=== PATIENT | female | born 1960 | race Caucasian/White ===

== ENCOUNTER → 2017-12-12 10:44 | Outpatient (CLI) | payer OTHER, SELFPAY ==
[2017-12-12 12:03] LABS: Absolute Neutrophil Count 2.4 X10^3/uL (2.0-7.7); Basophil# 0.03 X10^3/uL; Basophil% 0.8 % (0-1); Eosinophils% 2.6 % (0-5); Hematocrit 38.2 % (37-47); Hemoglobin 12.2 g/dl (12.0-15.0); Lymphocyte % 28.2 % (19-41); Mean Corp Hgb Conc 31.9 g/gl (32-36); Mean Corpuscular Hgb 29.7 pg (27.0-32.0); Mean Corpuscular Volume 92.9 fL (81-99); Mean Platelet Vol. 9.2 fl (6.2-12.0); Monocyte# 0.32 X10^3/uL; Monocyte% 8.2 % (0-10); Neutrophil # 2.35 X10^3/uL (2.7-7.7); Neutrophil % 60.2 % (47-70); Platelet Count 165 K/mm3 (150-450); RBC Distribution Width CV 13.5 % (11.6-14.6); RBC Distribution Width SD 45.7 fl (35.1-43.9); Red Blood Count 4.11 M/mm3 (4.2-5.4); White Blood Count 3.9 K/mm3 (4.4-11.0)
[2017-12-12 12:05] LABS: POSITIVE COUNT NO; POSITIVE DIFFERENTIAL NO; POSITIVE MORPHOLOGY NO
[2017-12-12 12:29] LABS: ALB/GLOB Ratio 0.8 RATIO (0.9-2.4); AST(SGOT) 16 U/L (15-37); Alanine Aminotransfer ALT/SGPT 26 U/L (13-56); Albumin, Serum 3.2 g/dL (3.2-5.0); Alkaline Phosphatase 106 U/L (45-117); Anion Gap 8 (5-15); BUN 16 mg/dL (7-18); BUN/Creat Ratio 15.2 RATIO (10-20); Calcium,Total 8.8 mg/dL (8.5-10.1); Chloride 104 mmol/L (98-107); Creatinine, Serum 1.05 mg/dL (0.55-1.02); EST Glomerular Filtration Rate 57 mL/min (>60); Est Glom Filt Rate - Afr Amer 69 mL/min (>60); Globulin 4.1 g/dL (2.2-4.2); Glucose 93 mg/dL (74-106); Potassium 4.2 mmol/L (3.5-5.1); Protein, Total 7.3 g/dL (6.4-8.2); Sodium Level 140 mmol/L (136-145)
[2017-12-13 14:06] LABS: Absolute CD4 Helper 352 /uL (359-1519); Basophils (Absolute) 0 x10E3/uL (0.0-0.2); Eosinophils 3 % (Not Estab.); Eosinophils (Absolute) 0.1 x10E3/uL (0.0-0.4); Hemoglobin 12.3 g/dL (11.1-15.9); Immature Granulocytes 0 % (Not Estab.); Lymphs 29 % (Not Estab.); Lymphs (Absolute) 1.3 x10E3/uL (0.7-3.1); MCH 29.9 pg (26.6-33.0); MCHC 33.2 g/dL (31.5-35.7); MCV 90 fL (79-97); Monocytes 8 % (Not Estab.); Monocytes (Absolute) 0.3 x10E3/uL (0.1-0.9); Neutrophils 59 % (Not Estab.); Neutrophils (Absolute) 2.6 x10E3/uL (1.4-7.0); Percent % CD4 Pos. Lymph. 27.1 % (30.8-58.5); Platelets 183 x10E3/uL (150-379); RBC Count 4.11 x10E6/uL (3.77-5.28); RDW 14.2 % (12.3-15.4); WBC Count 4.4 x10E3/uL (3.4-10.8)
[2017-12-13 14:38] LABS: Immature Granulocytes Absolute 0 x10E3/uL (0.0-0.1)
[2017-12-14 13:54] LABS: HIV-1 RNA by PCR, Quant. 50 copies/mL (.); LOG10 HIV-1 RNA 1.699 (.)
== END ==
DX: B20 Human immunodeficiency virus [HIV] disease (principal)
CPT/HCPCS: 36415; 80053; 85025; 86361; 87536

== ENCOUNTER → 2018-01-19 12:02 | Outpatient (CLI) | payer OTHER, SELFPAY ==
[2018-01-21 12:07] LABS: HIV-1 RNA by PCR, Quant. < 20 copies/mL (.)
== END ==
DX: B20 Human immunodeficiency virus [HIV] disease (principal); E78.1 Pure hyperglyceridemia; E55.9 Vitamin D deficiency, unspecified
CPT/HCPCS: 36415; 87536

== ENCOUNTER → 2018-07-11 12:39 | Outpatient (CLI) | payer OTHER, SELFPAY ==
[2018-07-11 13:49] LABS: Absolute Lymphocyte Count 1.51 X10^3/ul (0.83-4.51); Basophil# 0.03 X10^3/uL; Basophil% 0.6 % (0-1); Eosinophil# 0.05 X10^3/uL; Hematocrit 40.1 % (37-47); Hemoglobin 13.1 g/dl (12.0-15.0); Lymphocyte # 1.51 X10^3/ul (4.0); Lymphocyte % 30.3 % (19-41); Mean Corp Hgb Conc 32.7 g/gl (32-36); Mean Corpuscular Hgb 28.4 pg (27.0-32.0); Mean Corpuscular Volume 86.8 fL (81-99); Mean Platelet Vol. 9.9 fl (6.2-12.0); Monocyte# 0.37 X10^3/uL; Monocyte% 7.4 % (0-10); Neutrophil # 3.02 X10^3/uL (2.7-7.7); Neutrophil % 60.7 % (47-70); Platelet Count 208 K/mm3 (150-450); RBC Distribution Width CV 14.4 % (11.6-14.6); RBC Distribution Width SD 44.5 fl (35.1-43.9); Red Blood Count 4.62 M/mm3 (4.2-5.4)
[2018-07-11 13:51] LABS: POSITIVE COUNT NO; POSITIVE DIFFERENTIAL NO; POSITIVE MORPHOLOGY NO
[2018-07-11 14:16] LABS: ALB/GLOB Ratio 0.9 RATIO (0.9-2.4); AST(SGOT) 20 U/L (15-37); Alanine Aminotransfer ALT/SGPT 34 U/L (13-56); Albumin, Serum 3.6 g/dL (3.2-5.0); Alkaline Phosphatase 95 U/L (45-117); Anion Gap 8 (5-15); BUN 21 mg/dL (7-18); BUN/Creat Ratio 18.4 RATIO (10-20); Calcium,Total 9.2 mg/dL (8.5-10.1); Chloride 107 mmol/L (98-107); Creatinine, Serum 1.14 mg/dL (0.55-1.02); EST Glomerular Filtration Rate 52 mL/min (>60); Est Glom Filt Rate - Afr Amer 63 mL/min (>60); Globulin 3.8 g/dL (2.2-4.2); Glucose 102 mg/dL (74-106); Potassium 4.4 mmol/L (3.5-5.1); Protein, Total 7.4 g/dL (6.4-8.2); Sodium Level 143 mmol/L (136-145)
[2018-07-12 14:07] LABS: Absolute CD4 Helper 418 /uL (359-1519); Basophils (Absolute) 0 x10E3/uL (0.0-0.2); Eosinophils 1 % (Not Estab.); Eosinophils (Absolute) 0 x10E3/uL (0.0-0.4); Hematocrit 41.6 % (34.0-46.6); Hemoglobin 13.2 g/dL (11.1-15.9); Immature Granulocytes 0 % (Not Estab.); Lymphs 30 % (Not Estab.); Lymphs (Absolute) 1.7 x10E3/uL (0.7-3.1); MCHC 31.7 g/dL (31.5-35.7); MCV 88 fL (79-97); Monocytes 8 % (Not Estab.); Monocytes (Absolute) 0.5 x10E3/uL (0.1-0.9); Neutrophils 60 % (Not Estab.); Neutrophils (Absolute) 3.5 x10E3/uL (1.4-7.0); Percent % CD4 Pos. Lymph. 24.6 % (30.8-58.5); RBC Count 4.71 x10E6/uL (3.77-5.28); WBC Count 5.7 x10E3/uL (3.4-10.8)
[2018-07-14 11:41] LABS: HIV-1 RNA by PCR, Quant. < 20 copies/mL (.)
[2018-07-14 12:07] LABS: Immature Granulocytes Absolute 0 x10E3/uL (0.0-0.1); Platelets 233 x10E3/uL (150-379)
== END ==
LOC: MTLAB 12:48
DX: B20 Human immunodeficiency virus [HIV] disease (principal)
CPT/HCPCS: 36415; 80053; 85025; 86361; 87536

== ENCOUNTER → 2019-04-24 09:51 | Outpatient (CLI) | payer OTHER, SELFPAY ==
[2019-04-24 12:33] LABS: Absolute Lymphocyte Count 1.33 X10^3/uL (0.83-4.51); Absolute Neutrophil Count 3.2 X10^3/uL (2.0-7.7); Basophil# 0.06 X10^3/uL; Basophil% 1.2 % (0-1); Eosinophil# 0.08 X10^3/uL; Eosinophils% 1.6 % (0-5); Hematocrit 42.1 % (37-47); Hemoglobin 13.3 g/dL (12.0-15.0); Lymphocyte # 1.33 X10^3/ul (4.0); Lymphocyte % 26.2 % (19-41); Mean Corp Hgb Conc 31.6 g/dL (32-36); Mean Corpuscular Hgb 27.8 pg (27.0-32.0); Mean Corpuscular Volume 88.1 fL (81-99); Mean Platelet Vol. 9.7 fl (6.2-12.0); Monocyte% 7.9 % (0-10); NRBC Flagged by Analyzer 0 % (0-5); Neutrophil # 3.19 X10^3/uL (2.7-7.7); Neutrophil % 62.9 % (47-70); Platelet Count 234 K/mm3 (150-450); RBC Distribution Width CV 14.4 % (11.6-14.6); RBC Distribution Width SD 46.3 fl (35.1-43.9); Red Blood Count 4.78 M/mm3 (4.2-5.4); White Blood Count 5.1 K/mm3 (4.4-11.0)
[2019-04-24 13:02] LABS: Vitamin B12 678 pg/mL (211-911); Vitamin D,25 Hydroxy 33.5 ng/mL (29.95-100.01)
[2019-04-24 13:10] LABS: ALB/GLOB Ratio 0.8 RATIO (0.9-2.4); AST(SGOT) 21 U/L (15-37); Alanine Aminotransfer ALT/SGPT 36 U/L (13-56); Albumin, Serum 3.6 g/dL (3.2-5.0); Alkaline Phosphatase 112 U/L (45-117); Anion Gap 6 (5-15); BUN 20 mg/dL (7-18); BUN/Creat Ratio 18.3 RATIO (10-20); Calcium,Total 9.2 mg/dL (8.5-10.1); Chloride 103 mmol/L (98-107); Cholesterol 255 mg/dL (200); Creatinine, Serum 1.09 mg/dL (0.55-1.02); EST Glomerular Filtration Rate 55 mL/min (>60); Est Glom Filt Rate - Afr Amer 66 mL/min (>60); Ferritin 16 ng/mL (8-252); Globulin 4.6 g/dL (2.2-4.2); Glucose 107 mg/dL (74-106); High Density Lipoprotein 48 mg/dL; Iron 43 ug/dL (50-170); Iron Binding Capacity,Total 420 ug/dL (250-450); Magnesium 2.1 mg/dL (1.6-2.6); Potassium 4.4 mmol/L (3.5-5.1); Protein, Total 8.2 g/dL (6.4-8.2); Sodium Level 136 mmol/L (136-145); T4 Free Direct 1.22 ng/dL (0.76-1.46); Thyroid Stim Hormone (TSH) 2.24 uIU/mL (0.358-3.74); Triglycerides 207 mg/dL; Very Low Density Lipoprotein 41 mg/dL (5-40)
[2019-04-26 15:46] LABS: Zinc, Plasma or Serum 65 ug/dL (56-134)
== END ==
LOC: MFPLAB 09:52
PROVIDERS: PCP Family Medicine; Visit Provider Family Medicine
DX: E03.9 Hypothyroidism, unspecified (principal); E55.9 Vitamin D deficiency, unspecified; E66.01 Morbid (severe) obesity due to excess calories; R73.09 Other abnormal glucose; Z98.84 Bariatric surgery status
CPT/HCPCS: 36415; 80053; 80061; 82306; 82607; 82728; 83036; 83540; 83550; 83735; 84439; 84443; 84630; 85025

== ENCOUNTER → 2019-05-24 08:51 | Outpatient (CLI) | payer OTHER, SELFPAY ==
[2019-05-24 10:08] LABS: Anion Gap 6 (5-15); BUN 18 mg/dL (7-18); BUN/Creat Ratio 17.6 RATIO (10-20); Calcium,Total 8.4 mg/dL (8.5-10.1); Chloride 109 mmol/L (98-107); Creatinine, Serum 1.02 mg/dL (0.55-1.02); EST Glomerular Filtration Rate 59 mL/min (>60); Est Glom Filt Rate - Afr Amer 71 mL/min (>60); Glucose 103 mg/dL (74-106); Potassium 3.8 mmol/L (3.5-5.1); Sodium Level 143 mmol/L (136-145)
== END ==
PROVIDERS: PCP Family Medicine; Referring Provider Family Medicine; Visit Provider Family Medicine
DX: R94.4 Abnormal results of kidney function studies (principal)
CPT/HCPCS: 36415; 80048

== ENCOUNTER → 2019-11-21 13:23 | Outpatient (CLI) | payer OTHER, SELFPAY ==
--- NOTE | 2019-11-21 13:32 | MRI_ITS ---
STUDY: MRI RIGHT FOREFOOT WITHOUT CONTRAST REASON FOR EXAM: Female, 59 years old. rt foot capsulitis, metatarsalgia -- pain across MTPJ s x 1 year, bunion repair 2015 TECHNIQUE: Standardized fat and water weighted pulse sequences were obtained in all 3 orthogonal planes. COMPARISON: None. FINDINGS: Healed osteotomy defect head neck junction of the first metatarsal bone in addition to a cortical plate-screw construct/surgical screw fixation in the first proximal phalanx and at the osteotomy site. Mild degenerative narrowing of the first MTP joint space. No bone marrow edema or occult fracture. Normal lateral sesamoid. Mild cortical irregularity and degenerative signal is also present in the medial sesamoid. Normal interphalangeal joint of the hallux. Normal proximal and distal phalanges of the great toe. Normal medial and lateral heads of the flexor hallucis brevis tendons. Normal flexor and extensor hallucis longus tendons. Normal second through fifth metatarsophalangeal (MTP) joints. Normal interphalangeal joints of the second through fifth toes. Normal proximal, middle and distal phalanges of the second through fifth toes. Normal first through fourth intermetatarsal spaces. Normal flexor and extensor tendons of the second through fifth toes. Normal visualized metatarsi. Normal intrinsic muscles of the forefoot. There is no demonstrated soft tissue abnormality. MRI/Lower Ext/No Jt/w/o IMPRESSION: 1. Healed osteotomy defect head neck junction of the first metatarsal bone in addition to a cortical plate-screw construct/surgical screw fixation in the first proximal phalanx and at the osteotomy site. Mild degenerative narrowing of the first MTP joint space. 2. No bone marrow edema or occult fracture. 3. Normal lateral sesamoid. Mild cortical irregularity and degenerative signal is also present in the medial sesamoid. Electronically Signed: Oniel Torres MD at 20:56 EDT , Service support ,
== END ==
PROVIDERS: PCP Family Medicine; Referring Provider Podiatrist; Visit Provider Podiatrist
DX: M77.41 Metatarsalgia, right foot (principal)
CPT/HCPCS: 73718

== ENCOUNTER → 2020-02-22 09:40 | Outpatient (CLI) | payer OTHER, SELFPAY ==
[2020-02-22 12:13] LABS: Absolute Neutrophil Count 2.5 X10^3/uL (2.0-7.7); Basophil# 0.04 X10^3/uL; Eosinophil# 0.07 X10^3/uL; Eosinophils% 1.7 % (0-5); Hematocrit 42.5 % (37-47); Hemoglobin 13.4 g/dL (12.0-15.0); Lymphocyte % 28.8 % (19-41); Mean Corp Hgb Conc 31.5 g/dL (32-36); Mean Corpuscular Hgb 30.3 pg (27.0-32.0); Mean Corpuscular Volume 96.2 fL (81-99); Mean Platelet Vol. 9.5 fl (6.2-12.0); Monocyte# 0.33 X10^3/uL; Monocyte% 7.9 % (0-10); NRBC Flagged by Analyzer 0 % (0-5); Neutrophil # 2.51 X10^3/uL (2.7-7.7); Neutrophil % 60.4 % (47-70); Platelet Count 197 K/mm3 (150-450); RBC Distribution Width CV 13.1 % (11.6-14.6); RBC Distribution Width SD 46.8 fl (35.1-43.9); Red Blood Count 4.42 M/mm3 (4.2-5.4); White Blood Count 4.2 K/mm3 (4.4-11.0)
[2020-02-22 12:38] LABS: Vitamin D,25 Hydroxy 31.7 ng/mL
[2020-02-22 12:56] LABS: ALB/GLOB Ratio 0.8 RATIO (0.9-2.4); AST(SGOT) 24 U/L (15-37); Alanine Aminotransfer ALT/SGPT 49 U/L (13-56); Albumin, Serum 3.2 g/dL (3.2-5.0); Alkaline Phosphatase 119 U/L (45-117); Anion Gap 3 (5-15); BUN 16 mg/dL (7-18); BUN/Creat Ratio 16.9 RATIO (10-20); Calcium,Total 8.5 mg/dL (8.5-10.1); Chloride 106 mmol/L (98-107); Cholesterol 256 mg/dL (200); Creatinine, Serum 0.95 mg/dL (0.55-1.02); EST Glomerular Filtration Rate 64 mL/min (>60); Est Glom Filt Rate - Afr Amer 77 mL/min (>60); Glucose 97 mg/dL (74-106); High Density Lipoprotein 52 mg/dL; Potassium 4.1 mmol/L (3.5-5.1); Protein, Total 7.2 g/dL (6.4-8.2); Sodium Level 140 mmol/L (136-145); Thyroid Stim Hormone (TSH) 2.09 uIU/mL (0.358-3.74); Triglycerides 180 mg/dL; Very Low Density Lipoprotein 36 mg/dL (5-40)
[2020-02-25 12:07] LABS: Absolute CD3 930 /uL (622-2402); Basophils (Absolute) 0.1 x10E3/uL (0.0-0.2); CD4/CD8 Ratio 0.76 (0.92-3.72); Eosinophils 2 % (Not Estab.); Eosinophils (Absolute) 0.1 x10E3/uL (0.0-0.4); Hematocrit 40.1 % (34.0-46.6); Hemoglobin 13.5 g/dL (11.1-15.9); Lymphs 30 % (Not Estab.); Lymphs (Absolute) 1.3 x10E3/uL (0.7-3.1); MCH 31.4 pg (26.6-33.0); MCHC 33.7 g/dL (31.5-35.7); MCV 93 fL (79-97); Monocytes 8 % (Not Estab.); Monocytes (Absolute) 0.3 x10E3/uL (0.1-0.9); Neutrophils 59 % (Not Estab.); Neutrophils (Absolute) 2.4 x10E3/uL (1.4-7.0); Percent % CD3 Pos. Lymph. 71.5 % (57.5-86.2); Platelets 187 x10E3/uL (150-450); WBC Count 4.1 x10E3/uL (3.4-10.8)
[2020-02-25 21:01] LABS: HIV-1 RNA by PCR, Quant. < 20 copies/mL (.)
[2020-02-25 21:48] LABS: Absolute CD4 Helper 413; Percent % CD4 Pos. Lymph. 31.8
== END ==
LOC: MTLAB 09:46
PROVIDERS: PCP Family Medicine
DX: B20 Human immunodeficiency virus [HIV] disease (principal); E55.9 Vitamin D deficiency, unspecified; E03.9 Hypothyroidism, unspecified; E78.2 Mixed hyperlipidemia
CPT/HCPCS: 36415; 80053; 80061; 82306; 84443; 85025; 86359; 87536

== ENCOUNTER 2024-01-11 11:30 | Outpatient (RCR) | payer BC, SELFPAY ==
--- NOTE | 2024-01-04 11:53 | HP.PTEVAL ---
Patient's Visit Information Visit Information Visit Information: FLORINDA BROWN is a 63 year old F referred to Physical Therapy by Dr. James Means MD with a diagnosis of Spondylolisthesis lumbar. Date of Evaluation: 01/04/24 Physical Therapist: Kayode Baez, DPT, OCS, CSCS Visit Plan Frequency: 2x /Week Duration: 4-6 Weeks Plan: 2x/week for 4-6 for... IE:HEp PPTx10, SKC,x10, trunk rotation x 10, neck rotationa nd retraction and posture with NS, HO given treat with..rollout and stretch to HEP for quad and psoas stretch, LB AROM, NS ccore strengvth mat to stand to HEP, gneral strength posture, core, LE to HEP, all with pics. MH and STM as needed. Consider pool if progress lacks Subjective Subjective: Chronic back pain and hip pain with degeration in spine and possibly spinal stenosis. Has hurt for years but is worsening. Has to sleep with head up and foot up. Slowly worsening. B hip pain and into LB. Has neuropathy in B LE but not sure etiology(- EMG). Worse at work as nurse. Better sitting and relaxing. Walking is limited to less than a quarter mile and legs aand back hurt. No noticeable weakness. Sleep is OK but stiff and sore and wakes up painful often worse without legs and head up. 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 basic ADLs all I, careful with cleaning and takes it slow, has no steps. Regular exercises none. Hobbies: sew and crafting and can do these. Pain LBP: Pain Intensity (Out of 10): 1 Pain Intensity Range: 7 Comment: worse with turning patient over, lingers a little bit, better sitting. Objective Objective: Walks with obvious kyphosis in thoracic spine but I and safe with good step length. Trasnfers chair requiring UE I. Good balance. LB AROM ext max limited and painful, L SB painful, R SB is OK, flexion is limited in lumbar but hyper kyphosis. - slump, - SLR, + instability testing UE resistance and hip flexion testing. Hip AROM ext to 0 only, abd 20, flexion 95 B. knee and ankle aROM WFL, tightness obvious in HS at -30 90/90 test and in psoas connecting into quad at 95 hanging off edge of table. reflexes 0/3 patella adna chilles B. Sensation LE WNL to gross light touch. Pelvic movement is fair but psoitioning is anteriorly rotated. Balance/Special Test Scores Oswestry Low Back Score: 20 Goals Goal 1:: I appropriate HEP for psoas stretch, core NS strength adn general strengvth to HEP to limit future pain Goal Time Frame: 4-6 Weeks Goal 2:: Move patients at work without pain Goal Time Frame: 4-6 Weeks Goal 3:: Walks 200 feet with NS adn no pain Goal Time Frame: 4-6 Weeks Goal 4:: Pt feel pain is 50% improved and 2/10 in LB at worst. Goal Time Frame: 4-6 Weeks Goal 5:: oswestry score 5 or less Goal Time Frame: 4-6 Weeks Rehabilitation Potential Physical Therapy Diagnosis: back pain , inflexibility adn weakness limiting function comfort Rehabilitation Potential: Good Anticipated Interventions Patient/Client Instruction: Educate patient on: Condition and Plan of Care For the Purpose of:: To decrease pain, To increase ROM, To improve nutrient delivery to tissue, To improve muscle performance and motor function and To increase tolerance to activity/condition/position Therapeutic Exercise to Include: Strength training, Flexibilty training, Passive ROM, Active ROM and Dynamic Lumbar Stabilization For the Purpose of:: To decrease pain, To increase ROM, To improve nutrient delivery to tissue, To increase oxygenation perfusion, To improve muscle performance and motor function and To increase tolerance to activity/condition/position Manual Therapy Techniques to Include: Mobilization and Soft tissue mobilization For the Purpose of:: To decrease pain, To increase ROM and To improve nutrient delivery to tissue Thermo therapy (hot pack): Yes For the Purpose of:: To decrease pain Text: Thank you for the opportunity to evaluate your patient. For Medicare and Medicare HMO plans, please review the plan of care and approve it. It will need to be FAXED BACK to us at [phone] for Medicare purposes. For Medicare only, by signing this I certify the plan of care. Please let me know if there are questions or concerns regarding this plan of care. Physician Signature: Date:
--- NOTE | 2024-01-23 09:38 | HP.PT.NRP ---
Patient Information Patient Information: FLORINDA BROWN was seen in my office for initial evaluation on 01/04/24. The following Plan of Care was established for this patient: POC Established Initial Frequency: 2x /Week Initial Duration: 4-6 Weeks Anticipated Interventions Patient/Client Instruction: Educate patient on: Condition and Plan of Care For the Purpose of:: To decrease pain, To increase ROM, To improve nutrient delivery to tissue, To improve muscle performance and motor function and To increase tolerance to activity/condition/position Therapeutic Exercise to Include: Strength training, Flexibilty training, Passive ROM, Active ROM and Dynamic Lumbar Stabilization For the Purpose of:: To decrease pain, To increase ROM, To improve nutrient delivery to tissue, To increase oxygenation perfusion, To improve muscle performance and motor function and To increase tolerance to activity/condition/position Manual Therapy Techniques to Include: Mobilization and Soft tissue mobilization For the Purpose of:: To decrease pain, To increase ROM and To improve nutrient delivery to tissue Thermo therapy (hot pack): Yes For the Purpose of:: To decrease pain Last Seen Last Seen: This patient was last seen in our office 01/11/24. Pertinent comments regarding their Physical therapy will appear below: Pt seen 3 visits of POC but was suggesting she did not have time for PT. She eventually called and cancelled all visits without giving a reason. I will discontinue at her request. At this point I will be discontinuing this patient from physical therapy. I would be happy to see this patient again in the future if found appropriate by the physician. Thank you! Kayode Baez, DPT, OCS, CSCS Balance/Gait/Functional tests Balance/Special Test Scores Oswestry Low Back Score: 20
== END 2024-01-11 19:00 | disposition home or self-care (01) ==
LOC: PT 11:30
PROVIDERS: PCP Family Medicine; Referring Provider Orthopaedic Surgery Orthopaedic Surgery of the Spine; Visit Provider Orthopaedic Surgery Orthopaedic Surgery of the Spine
DX: M43.16 Spondylolisthesis, lumbar region (principal)
CPT/HCPCS: 97110; 97161

== ENCOUNTER → 2024-02-08 | Outpatient (CLI) | payer BC, SELFPAY ==
--- NOTE | 2024-02-08 13:27 | MRI_ITS ---
STUDY: MRI LUMBAR SPINE WITHOUT CONTRAST REASON FOR EXAM: Female, 63 years old. back pain into bilateral legs TECHNIQUE: Standardized fat and water weighted pulse sequences were obtained in the sagittal and axial planes. COMPARISON: None FINDINGS: T12-L1: Disc desiccation and loss of disc height but no disc protrusion, spinal stenosis, neural foraminal stenosis. Normal lumbar lordosis. There is no substantial scoliosis. Normal conus medullaris that terminates at the L1/L2. Prominent hemangioma in the right side of the L5 vertebral body. L1-2: Mild bilobed disc protrusion results in mild spinal stenosis and mild bilateral neural foraminal stenosis. L2-3: Mild bilateral facet hypertrophy and moderate ligament flavum hypertrophy. Mild bilobed disc protrusion produces mild spinal stenosis and mild bilateral neural foraminal stenosis. L3-4: Mild bilateral facet hypertrophy moderately inflamed hypertrophy. Mild bilobed disc protrusion produces mild spinal stenosis and mild bilateral neural foraminal stenosis. L4-5: Moderate facet hypertrophy and ligament flavum hypertrophy. Disc desiccation and loss of disc height with a mild bilobed disc protrusion produces mild spinal stenosis and mild bilateral neural foraminal stenosis. L5-S1: Moderate bilateral facet hypertrophy and ligament flavum hypertrophy. No disc protrusion, spinal stenosis, or neural foraminal stenosis. Normal visualized sacral ala. Normal visualized paraspinous soft tissue structures. MRI/Spine Lumbar (Routine) IMPRESSION: Multilevel degenerative changes, as described above. Electronically Signed: Nguyễn Cardenas MD at 10:53 EST ,
== END | disposition home or self-care (01) ==
LOC: MRI 13:22
PROVIDERS: PCP Family Medicine; Referring Provider Orthopaedic Surgery Orthopaedic Surgery of the Spine; Visit Provider Orthopaedic Surgery Orthopaedic Surgery of the Spine
DX: M43.16 Spondylolisthesis, lumbar region (principal)
CPT/HCPCS: 72148

== ENCOUNTER → 2024-06-12 | Outpatient (CLI) | payer BC, SELFPAY ==
[2024-06-12 12:07] LABS: Absolute Lymphocyte Count 1.33 X10^3/uL (0.83-4.51); Absolute Neutrophil Count 2.9 X10^3/uL (2.0-7.7); Basophil# 0.07 X10^3/uL; Basophil% 1.5 % (0-1); Eosinophil# 0.07 X10^3/uL; Eosinophils% 1.5 % (0-5); Hematocrit 41.8 % (37-47); Hemoglobin 14.3 g/dL (12.0-15.0); Lymphocyte # 1.33 X10^3/ul (0.83-4.51); Lymphocyte % 28.2 % (19-41); Mean Corp Hgb Conc 34.2 g/dL (32-36); Mean Corpuscular Volume 93.5 fL (81-99); Mean Platelet Vol. 9.6 fl (6.2-12.0); Monocyte# 0.33 X10^3/uL; NRBC Flagged by Analyzer 0 % (0-5); Neutrophil # 2.91 X10^3/uL (2.7-7.7); Neutrophil % 61.6 % (47-70); Platelet Count 196 K/mm3 (150-450); RBC Distribution Width CV 12.8 % (11.6-14.6); RBC Distribution Width SD 44.2 fl (35.1-43.9); Red Blood Count 4.47 M/mm3 (4.2-5.4); White Blood Count 4.7 K/mm3 (4.4-11.0)
[2024-06-12 13:29] LABS: ALB/GLOB Ratio 1.2 RATIO (0.9-2.4); AST(SGOT) 25 U/L (<=31); Alanine Aminotransfer ALT/SGPT 23 U/L (<=34); Albumin, Serum 3.9 g/dL (3.4-4.8); Alkaline Phosphatase 100 U/L (35-104); Anion Gap 12 (5-15); BUN 24 mg/dL (4-19); BUN/Creat Ratio 23.4 RATIO (10-20); Calcium,Total 9.3 mg/dL (7.6-11.0); Chloride 102 mmol/L (98-108); Creatinine, Serum 1.01 mg/dL (0.70-1.20); EST Glomerular Filtration Rate 62 (>60); Globulin 3.3 g/dL (2.2-4.2); Glucose 106 mg/dL (70-99); Potassium 4.8 mmol/L (3.3-5.1); Protein, Total 7.2 g/dL (5.9-8.4); Sodium Level 138 mmol/L (133-145); Total Bilirubin 0.18 mg/dL (0.00-1.30)
[2024-06-12 13:36] LABS: CRP 3.89 mg/L (0.0-3.0)
[2024-06-12 14:05] LABS: LDH 148 U/L (84-246)
== END | disposition home or self-care (01) ==
PROVIDERS: PCP Family Medicine
DX: K58.0 Irritable bowel syndrome with diarrhea (principal); K92.89 Other specified diseases of the digestive system
CPT/HCPCS: 36415; 80053; 82784; 82785; 83516; 83615; 84443; 85025; 86003; 86005; 86036; 86037; 86140; 86255; 86671

== ENCOUNTER → 2024-06-19 | Outpatient (CLI) | payer BC, SELFPAY ==
[2024-06-22 02:07] LABS: Calprotectin, Stool 62 ug/g (0-120)
[2024-06-25 02:07] LABS: Pancreatic Elastase, Fecal > 800 (>200)
== END | disposition home or self-care (01) ==
LOC: LABSPEC 14:41
PROVIDERS: PCP Family Medicine
DX: K58.0 Irritable bowel syndrome with diarrhea (principal); K92.89 Other specified diseases of the digestive system
CPT/HCPCS: 36415; 82653; 83993; 87177; 87209

== ENCOUNTER 2024-08-21 13:03 | Day surgery (SDC) | payer BC, SELFPAY ==
[2024-08-21] VITALS (7 sets, daily range): BP systolic 105–141; BP diastolic 69–83; PULSE 80–87; RESP 16–18; TEMP 36.1–36.9; O2SAT 99–100; BMI 45.6
[2024-08-21] MEDS: Lactated Ringers 1,000 ML 15 ML IV (13:54)
--- NOTE | 2024-08-21 14:15 | EGD_PTH ---
PATIENT: FLORINDA BROWN LOC: EN U#:[id number] AGE/SX: 63/F ROOM: RE08/21/[address]: Dr. Ananda Mullen DO : 1960 BED: DIS: 08/21/2024 SPEC #: [id number] RECD: 08/21/24 16:36 STATUS: LALITO REMoises #: [id number] BELINDA: 08/21/24 14:[address]: Ananda Mullen DEPT: SURGICAL PATHOLOGY RECD BY: Edenilson Adams ENTERED: 08/22/24 09:45 SP TYPE: EGD BIOPSY PEPITO DR: Dr. Riley Holly MD Tissues: A - Gastric mucous membrane B - Ileum, NOS C - COLON BIOPSY Procedures: Surgery Specimen Level IV HEADER OPERATION: Colonoscopy with biopsy, EGD with biopsy PRE-OP DIAGNOSIS: Irritable bowel syndrome with diarrhea, gas bloat syndrome TISSUE SUBMITTED: A- Gastric body stricture biopsy, B- Terminal ileum biopsy, C- Random colon biopsy MICROSCOPIC DIAGNOSIS A. Gastric body, stricture, biopsy: Oxyntic mucosa with features of reactive gastropathy. B. Terminal ileum, biopsy: Normal villous architecture with no specific pathologic change. C. Colon, random biopsy: No specific pathologic change. MICROSCOPIC DESCRIPTION Slides are reviewed. GROSS DESCRIPTION A. Received in fixative is one container labeled with the patient's name and designated Gastric body stricture biopsy. The specimen consists of three irregular fragments of light lorenzo soft tissue that in aggregate measure 0.3 to 0.8 cm. The specimen is totally submitted in one cassette. B. Received in fixative is one container labeled with the patient's name and designated Terminal ileum biopsy. The specimen consists of two irregular fragments of light lorenzo soft tissue that in aggregate measure 0.4 cm each. The specimen is totally submitted in one cassette. C. Received in fixative is one container labeled with the patient's name and designated Random colon biopsy. The specimen consists of six irregular fragments of light lorenzo soft tissue that in aggregate measure 0.2 to 0.6 cm. The specimen is totally submitted in one cassette. Ajay 08/22/2024 CPT:63946p7
--- NOTE | 2024-08-21 14:23 | HP.PCM_ITS ---
HPI - General General Date of Admission: 08/21/24 Date of Service: 08/21/24 Chief Complaint: bloating and abdominal pain [facility] Narrative FLORINDA BROWN, is a 63 F who presents with c/o abdominal pain since 05.01.24. Hx: spondylolisthesis, neuropathy, several stomach staplings, attempted gastric bypass (not completed d/t increased number of adhesions), hysterectomy, cholecystectomy, ITP, HIV, EBV, GERD, hypothyroid. 05.29.24 abd/pel CT w/IVcon: no acute findings; 05.05.24 abd US:fatty liver (limited study d/t body habitus). She is a engine repairer production. LUQ pain-started a week after a norovirus infection in March- it hurts when bearing down for BM, and occasionally with deep breaths. States the sharp abdominal pain dissipates after each BM. Denies any recent URIs. Denies difficulty chewing and swallowing, cough, throat clearing, sinus drainage, reflux, heartburn (does take daily omeprazole), changes in appetite, abdominal bloating, constipation, and melena. She reports rare episodes of self limiting nausea without emesis, hematochezia d/t hemorrhoids. She reports last EGD/colonoscopy was in 2015. She reports having a history of hiatal hernia, gastritis with H.pylori infection. She had been taking semaglutide, but last dose taken in February 2024. She is now on a keto diet and has cut out as much sugar as possible. She states that she's afraid to eat at work d/t bowel urgency immediately after eating. After reducing sugars she notes a decrease in severity of GI symptoms. [facility] Medical History Wears glasses Depression Anxiety History of steroid therapy Thyroid disease Arthritis Fatty liver Back pain History of hiatal hernia History of ulceration Gastric reflux Non-smoker CPAP (continuous positive airway pressure) dependence Sleep apnea History of stress test Hypothyroidism GERD (gastroesophageal reflux disease) LUQ pain History of ITP HIV (human immunodeficiency virus infection) Home Medications ?Medication ?Instructions ?Recorded ?Last Taken ?Type bictegravir 50 mg-emtricitabine 1 tab PO QDAY 12/27/23 Unknown History 200 mg-tenofovir alafenam 25 mg tablet (Biktarvy) citalopram 20 mg tablet 20 mg PO QDAY 12/27/2308/20 History levothyroxine 150 mcg tablet 150 mcg PO QDAY 12/27/23 08/20/24 History cyclobenzaprine 10 mg tablet 10 mg PO TID PRN muscle s pasm 06/12/24 Unknown History celecoxib 200 mg capsule 200 mg PO DAILY 08/17/24 Unk nown History cholecalciferol (vitamin D3) 25 25 mcg PO QODAY Unknown History mcg (1,000 unit) capsule (Vitamin D3) famotidine 20 mg tablet (Acid 20 mg PO BID 08/17/24 History Controller) quetiapine 25 mg tablet 25 mg PO QHS 08/17/24 History Allergy/AdvReac Type Severity Reaction Status Date / Time Penicillins Allergy Rash Verified 08/21/24 13:46 gabapentin AdvReac Muscle Verified 08/21/24 13:46 weakness and pain metoclopramide (From Reglan) AdvReac Anxiety Verified 08/21/24 13:46 Family History Mother Multiple myeloma Father Prostate cancer Surgical History History of bunionectomy of right great toe Hx of tonsillectomy History of gastric stapling History of tubal ligation Hx of hysterectomy History of cholecystectomy Social History Smoking Status: Never smoker alcohol intake: never ROS Constitutional Constitutional: Denies fatigue, fever(s), poor appetite, weight gain or weight loss Gastrointestinal Gastrointestinal: Denies belching, bloating, change in bowel habits, change in stool character, chewing difficulty, coffee ground emesis, constipation, cramping, diarrhea, dyspepsia, dysphagia, early satiety, excessive flatus, fecal incontinence, heartburn, hematemesis, hematochezia, hemorrhoids, loose stools, melena, nausea, odynophagia, rectal bleeding, tenesmus, vomiting or weight changes Vital Signs Vital Signs Vital Signs: 08/21/24 13:49 08/21/24 13:49 Temperature 97.1 F L Temperature Source Temporal Pulse Rate 87 Respiratory Rate 16 Respiratory Pattern Normal Blood Pressure 141/83 H Blood Pressure Mean 102 Blood Pressure Source Monitor Blood Pressure Position Sitting Blood Pressure Location Left Forearm Pulse Ox 99 Oxygen Delivery Method Room Air Weight Weight: 299 lb 13.259 oz Body Mass Index (BMI) 45.6 Physical Exam Const alert, oriented x3, no apparent distress and healthy appearing General Appearance: cooperative GI normal to inspection, nondistended, normoactive bowel sounds, soft to palpation, non-tender and non-distended Percussion: normal to percussion Rectal Exam: deferred Assessment & Plan Assessment/Plan (1) Gas bloat syndrome: (2) Irritable bowel syndrome with diarrhea: PLAN: Assessment and Plan Assessment and Plan (1) Irritable bowel syndrome with diarrhea: Status: Acute (2) Gas bloat syndrome: Status: Acute Orders: Orders Allergen, Food Profile 14 Today K58.0 - Irritable bowel syndrome with diarrhea, K92.89 - Other specified diseases of the digestive system MIKEY Comprehensive Panel Today K58.0 - Irritable bowel syndrome with diarrhea, K92.89 - Other specified diseases of the digestive system ANCA Today K58.0 - Irritable bowel syndrome with diarrhea, K92.89 - Other specified diseases of the digestive system Calprotectin, Stool Today K58.0 - Irritable bowel syndrome with diarrhea, K92.89 - Other specified diseases of the digestive system CBC W/Diff, Automated Today K58.0 - Irritable bowel syndrome with diarrhea, K92.89 - Other specified diseases of the digestive system Celiac Disease Profile Today K58.0 - Irritable bowel syndrome with diarrhea, K92.89 - Other specified diseases of the digestive system Comprehensive Metabolic Profil Today K58.0 - Irritable bowel syndrome with diarrhea, K92.89 - Other specified diseases of the digestive system CRP Today K58.0 - Irritable bowel syndrome with diarrhea, K92.89 - Other specified diseases of the digestive system IBD Expanded Profile Today K58.0 - Irritable bowel syndrome with diarrhea, K92.89 - Other specified diseases of the digestive system Immunoglobulins G/A/M/E Today K58.0 - Irritable bowel syndrome with diarrhea, K92.89 - Other specified diseases of the digestive system Pancreatic Elastase, Fecal Today K58.0 - Irritable bowel syndrome with diarrhea, K92.89 - Other specified diseases of the digestive system LDH Today K58.0 - Irritable bowel syndrome with diarrhea, K92.89 - Other specified diseases of the digestive system Thyroid Stim Hormone (TSH) Today K58.0 - Irritable bowel syndrome with diarrhea, K92.89 - Other specified diseases of the digestive system Ova and Parasites 8623 Today K58.9 - Irritable bowel syndrome, unspecified Plan FLORINDA BROWN, is a 63 F who presents to the office today for establishment with [facility] for c/o abdominal pain since 05.01.24. Differential diagnoses include: IBS-D, IBD, EPI, food allergies. Discussed care plan with her. * reviewed low FODMAP diet, encouraged adherence * blood for inflammatory, allergy, IBD markers * stool for inflammatory, enzyme, parasite markers * schedule EGD to investigate gastritis, hx of H.pylori * schedule colonoscopy, due for screening * rifaximin 550mg PO TID [id number] * probiotic PO BID [id number], starting on day 8 of rifaximin * office FU with results
--- NOTE | 2024-08-21 14:23 | PCM.PRE.AN2 ---
ASA Classification* ASA Classification ASA Classification: 3 (GERD, hypothyorid, hiatal hernia, fatty liver, GERD, HIV (+))) Assessment & Plan Anesthesia* Anesthesia Assessment Anesthesia Assessment: Discussed sedation and/or anesthesia options, risks, benefits, and alternatives with patient/parents/legal guardian/POA. Questions invited. The patient/parents/legal guardian/POA seems to understand and agrees to proceed with anesthesia plan. Reviewed the physical assessment, medical history, allergy history and patient home medications list prior to surgery/procedure/anesthetic and documented any changes. Performed airway and anesthesia risk assessments. Anesthesia Type Anesthesia Type: General History Source History Obtained from:: Patient and Chart Anesthesia Focused Assessment* Temperature: 97.1 F Pulse Rate: 87 Blood Pressure: 141/83 Respiratory Rate: 16 Pulse Ox: 99 Airway Assessment Mouth opens: >3 cm Mallampati Score: III Teeth Condition: Missing Neck Range of motion (ROM): Full ROM Labs Anesthesia Preop lab: CBC WBC 4.7 K/mm3 (4.4-11.0) 06/12/24 11:43 06/12/24 RBC 4.47 M/mm3 (4.2-5.4) 06/12/24 11:43 06/12/24 Hgb 14.3 g/dL (12.0-15.0) 06/12/24 11:43 06/12/24 Hct 41.8 % (37-47) 06/12/24 11:43 06/12/24 Plt Count 196 K/mm3 (150-450) 06/12/24 11:43 06/12/24 CHEMISTRY Potassium 4.8 mmol/L (3.3-5.1) 06/12/24 11:43 06/12/24 Sodium 138 mmol/L (133-145) 06/12/24 11:43 06/12/24 Magnesium 2.1 mg/dL (1.6-2.6) 04/24/19 09:52 04/24/19 BUN 24 mg/dL (4-19) H 06/12/24 11:43 06/12/24 Creatinine 1.01 mg/dL (0.70-1.20) 06/12/24 11:43 06/12/24 Glucose 106 mg/dL (70-99) H 06/12/24 11:43 06/12/24 TSH 1.870 uIU/mL (0.300-4.200) 06/12/24 11:43 06/12/24 COAG Pre-Assessment Diagnosis/Proposed Procedure Planned Operative Procedure(s): COLONOSCOPY/EGD Anesthesia History 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 When Was Last Pacemaker Check QUESTION #4 FULL TEXT: You/Your Family Experience fever (hyperthermia) with Anesthesia Last Oral Intake Last Oral intake: Last Oral Intake NPO since 11:00 08/21/24 13:49 Meds taken in AM with sips of No 08/21/24 13:49 water? Meds patient instructed to take am of surgery PONV PONV - motion picture camera operator: PONV - motion picture camera operator Female Yes 08/17/24 11:28 HX of Motion Sickness No 08/17/24 11:28 HX of N/V After Surgery No 08/17/24 11:28 Non-Smoker Yes 08/17/24 11:28 Duration of Surgery greater No 08/17/24 11:28 than 60 minutes Number of Risk Factors 2 08/17/24 11:28 PONV Score Moderate Risk 08/17/24 11:28 Height & Weight Height & Weight: Anesthesia: Height & Weight Height 5 ft 8 in 08/21/24 13:49 Weight: 136 kg 08/21/24 13:49 Body Mass Index (BMI) 45.6 08/21/24 13:49 Respiratory Assessment Respiratory Assessment - motion picture camera operator: Respiratory Tract Infection Hx - motion picture camera operator Hx Respiratory Tract Infection No 08/17/24 11:28 STOP Sleep Apnea STOP Sleep Apnea - motion picture camera operator: STOP Sleep Apnea - motion picture camera operator Hx Hypertension No 08/17/24 11:28 Hx Sleep Apnea No 08/17/24 11:28 CPAP BIPAP Do you snore loudly (louder No 08/17/24 11:28 than talking or can be heard Do you often feel tired/ No 08/17/24 11:28 fatigued/ sleepy during daytime? Has anyone observed you stop No 08/17/24 11:28 breathing during sleep? STOP Results Negative 08/17/24 11:28 QUESTION #5 FULL TEXT : Do you snore loudly (louder than talking or can be heard through closed doors)? 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 Specify any problems Hx of Preganancy in last 3 No 08/17/24 11:28 Months Nurse Filling Out Transfusion VCHRISTIN 08/17/24 11:28 & Questions: Date: 08/17/24 08/17/24 11:28 Time: 11:29 08/17/24 11:28 Patient unable to answer at this time (ie. confused, unrespo /Reproduction History /Reproductive History - motion picture camera operator: /Reproductive Hx- motion picture camera operator Hx Now No 08/17/24 11:28 Gestational Age (in weeks): EDC: Hx Hx Para Hx Section SAB No 08/17/24 11:28 Active Medications Active Medications: Current Medications Generic Name Dose Route Start Last Admin Trade Name Freq PRN Reason Stop Dose Admin Lactated Ringer's 1,000 mls @ 15 mls/hr 08/21/24 14:00 08/21/24 13:54 IV 15 mls/hr .Q48H HARI Administration PFSH Medical History (Updated 08/17/24 @ 11:28 by Bhumika Chung) Wears glasses Depression Anxiety History of steroid therapy Thyroid disease Arthritis Fatty liver Back pain History of hiatal hernia History of ulceration Gastric reflux Non-smoker CPAP (continuous positive airway pressure) dependence Sleep apnea History of stress test Hypothyroidism GERD (gastroesophageal reflux disease) LUQ pain History of ITP HIV (human immunodeficiency virus infection) Home Medications ?Medication ?Instructions ?Recorded ?Last Taken ?Type bictegravir 50 mg-emtricitabine 1 tab PO QDAY 12/27/23 Unknown History 200 mg-tenofovir alafenam 25 mg tablet (Biktarvy) citalopram 20 mg tablet 20 mg PO QDAY 12/27/23 08/20/24 History levothyroxine 150 mcg tablet 150 mcg PO QDAY 12/27/23 08/20/24 History cyclobenzaprine 10 mg tablet 10 mg PO TID PRN muscle spasm 06/12/24 Unknown History celecoxib 200 mg capsule 200 mg PO DAILY 08/17/24 Unknown History cholecalciferol (vitamin D3) 25 25 mcg PO QODAY 08/17/24 Unknown History mcg (1,000 unit) capsule (Vitamin D3) famotidine 20 mg tablet (Acid 20 mg PO BID 08/17/24 08/20/24 History Controller) quetiapine 25 mg tablet 25 mg PO QHS 08/17/24 08/20/24 History Allergy/AdvReac Type Severity Reaction Status Date / Time Penicillins Allergy Rash Verified 08/21/24 13:46 gabapentin AdvReac Muscle Verified 08/21/24 13:46 weakness and pain metoclopramide (From Reglan) AdvReac Anxiety Verified 08/21/24 13:46 Family History Mother Multiple myeloma Father Prostate cancer Surgical History (Updated 08/17/24 @ 11:28 by Bhumika Chung) History of bunionectomy of right great toe Hx of tonsillectomy History of gastric stapling History of tubal ligation Hx of hysterectomy History of cholecystectomy Social History Smoking Status: Never smoker alcohol intake: never Review of Systems (Anesthesia) ROS Narrative System reviewed and no additional complaints, except as documented.
--- NOTE | 2024-08-21 15:20 | PCM.POST.ANE ---
Anesthesia: Postop Eval I Current Vital Signs Temperature: 97 F Pulse Rate: 82 Blood Pressure: 105/69 Respiratory Rate: 16 Pulse Ox: 100 Oxygen Delivery Method: Room Air Assessment Airway patent: Yes Spontaneous unlabored respirations: Yes Mental status: Awake and Calm nausea: No Vomiting: No Anesthesia Complication: No Fluid Hydration Crystalloid volume administer (ml): 700 Total IV fluid infused: 700 Progress Note Anesthesia document: Postop Eval 1 completed: Yes
--- NOTE | 2024-08-21 15:21 | OP.EGD_ITS ---
Patient Name: Ana Guthrie Procedure Date: 08/21/2024 2:32 PM Date of : 1960 Age: 63 Procedure: Upper GI endoscopy Indications: Epigastric abdominal pain Providers: Ananda Mullen DO Referring MD: Riley Holly Medicines: Monitored Anesthesia Care Patient Profile: This is a 63 year old female. Refer to note in patient chart for documentation of history and physical. Patient has symptoms. Complications: No immediate complications. Procedure: Pre-Anesthesia Assessment: - Prior to the procedure, a History and Physical was performed, and patient medications and allergies were reviewed. The patient is competent. The risks and benefits of the procedure and the sedation options and risks were discussed with the patient. All questions were answered and informed consent was obtained. Patient identification and proposed procedure were verified by the physician in the pre-procedure area. Mental Status Examination: alert and oriented. Airway Examination: normal oropharyngeal airway and neck mobility. Respiratory Examination: clear to auscultation. CV Examination: normal. Prophylactic Antibiotics: The patient does not require prophylactic antibiotics. Prior Anticoagulants: The patient has taken no anticoagulant or antiplatelet agents except for NSAID medication. ASA Grade Assessment: II - A patient with mild systemic disease. After reviewing the risks and benefits, the patient was deemed in satisfactory condition to undergo the procedure. The anesthesia plan was to use monitored anesthesia care (MAC). Immediately prior to administration of medications, the patient was re-assessed for adequacy to receive sedatives. The heart rate, respiratory rate, oxygen saturations, blood pressure, adequacy of pulmonary ventilation, and response to care were monitored throughout the procedure. The physical status of the patient was re-assessed after the procedure. After obtaining informed consent, the endoscope was passed under direct vision. Throughout the procedure, the patient's blood pressure, pulse, and oxygen saturations were monitored continuously. The colonoscope was introduced through the mouth, and advanced to the fourth part of the duodenum. Small bowel enteroscopy was deemed necessary. The upper GI endoscopy was accomplished without difficulty. The patient tolerated the procedure well. Scope In: 2:46:43 PM Scope Out: 2:53:10 PM Total Procedure Duration Time 0 hours 6 minutes 27 seconds Findings: The examined esophagus was normal. Evidence of a stenosed vertical banded gastroplasty was found. A gastric pouch with a medium size was found containing ulceration. The staple line appeared intact. Evidence of a Silastic band was not seen and appeared tight. This was traversed. Biopsies were taken with a cold forceps for histology. Verification of patient identification for the specimen was done. Biopsies were taken with a cold forceps for Helicobacter pylori testing. Verification of patient identification for the specimen was done. Estimated blood loss was minimal. A guidewire was placed and the scope was withdrawn. Dilation was performed with a Savary dilator with no resistance at 60 Fr. The dilation site was examined and showed moderate improvement in luminal narrowing. No gross lesions were noted in the third portion of the duodenum. Impression: - Normal esophagus. - Stenosed vertical banded gastroplasty with a medium-sized pouch and intact staple line and band appears tight. Biopsied. - No gross lesions in the third portion of the duodenum. Recommendation: - Return patient to hospital judge for ongoing care. - Resume previous diet. - Continue present medications. - Await pathology results. Procedure Code(s): --- Professional --- 35296, Esophagogastroduodenoscopy, flexible, transoral; with dilation of gastric/duodenal stricture(s) (eg, balloon, bougie) 41554, 59,51, Small intestinal endoscopy, enteroscopy beyond second portion of duodenum, not including ileum; with biopsy, single or multiple CPT copyright 2021 [employer]. All rights reserved. The codes documented in this report are preliminary and upon electrical helper review may be revised to meet current compliance requirements. Ananda Mullen DO 08/21/2024 3:21:30 PM This report has been signed electronically. Number of Addenda: 0 Note Initiated On: 08/21/2024 2:32 PM
--- NOTE | 2024-08-21 15:22 | OP.CCLET_ITS ---
08/21/2024 Riley Holly [address] [place] [address] Re : Upper GI endoscopy procedure for Ana Guthrie Dear Dr. Holly This procedure was performed on Wednesday, August 21, 2024. My impressions and recommendations are as follows: Impressions : - Normal esophagus. - Stenosed vertical banded gastroplasty with a medium-sized pouch and intact staple line and band appears tight. Biopsied. - No gross lesions in the third portion of the duodenum. Recommendations : - Return patient to hospital judge for ongoing care. - Resume previous diet. - Continue present medications. - Await pathology results. My findings are described in the full procedure note, which is enclosed. If I can be of further assistance, please feel free to contact me at . Sincerely, Ananda Mullen, 08/21/2024 3:21:30 PM This report has been signed electronically.
--- NOTE | 2024-08-21 15:24 | OP.COLON_ITS ---
Patient Name: Ana Guthrie Procedure Date: 08/21/2024 2:53 PM Date of : 1960 Age: 63 Procedure: Colonoscopy Indications: Generalized abdominal pain, Clinically significant diarrhea of unexplained origin Providers: Ananda Mullen DO Referring MD: Riley Holly Medicines: Monitored Anesthesia Care Patient Profile: This is a 63 year old female. Refer to note in patient chart for documentation of history and physical. Patient has symptoms. Last Colonoscopy: date unknown. Unable to locate last colonoscopy report. Complications: No immediate complications. Procedure: Pre-Anesthesia Assessment: - Prior to the procedure, a History and Physical was performed, and patient medications and allergies were reviewed. The patient is competent. The risks and benefits of the procedure and the sedation options and risks were discussed with the patient. All questions were answered and informed consent was obtained. Patient identification and proposed procedure were verified by the physician in the pre-procedure area. Mental Status Examination: alert and oriented. Airway Examination: normal oropharyngeal airway and neck mobility. Respiratory Examination: clear to auscultation. CV Examination: normal. Prophylactic Antibiotics: The patient does not require prophylactic antibiotics. Prior Anticoagulants: The patient has taken no anticoagulant or antiplatelet agents except for NSAID medication. ASA Grade Assessment: II - A patient with mild systemic disease. After reviewing the risks and benefits, the patient was deemed in satisfactory condition to undergo the procedure. The anesthesia plan was to use monitored anesthesia care (MAC). Immediately prior to administration of medications, the patient was re-assessed for adequacy to receive sedatives. The heart rate, respiratory rate, oxygen saturations, blood pressure, adequacy of pulmonary ventilation, and response to care were monitored throughout the procedure. The physical status of the patient was re-assessed after the procedure. After I obtained informed consent, the scope was passed under direct vision. Throughout the procedure, the patient's blood pressure, pulse, and oxygen saturations were monitored continuously. The colonoscope was introduced through the anus and advanced to the terminal ileum. The colonoscopy was performed without difficulty. The patient tolerated the procedure well. The quality of the bowel preparation was adequate. The terminal ileum, ileocecal valve, appendiceal orifice, and rectum were photographed. Scope In: 2:55:04 PM Scope Withdrawal Time 0 hours 8 minutes 41 seconds Scope Out: 3:06:59 PM Total Procedure Duration Time 0 hours 11 minutes 55 seconds Findings: The perianal and digital rectal examinations were normal. An area of mildly congested mucosa was found in the entire colon. Biopsies were taken with a cold forceps for histology. Verification of patient identification for the specimen was done. Estimated blood loss was minimal. A patchy area of the terminal ileum was congested. Biopsies were taken with a cold forceps for histology. Verification of patient identification for the specimen was done. Estimated blood loss was minimal. Impression: - Congested mucosa in the entire examined colon. Biopsied. - Congested mucosa in the terminal ileum. Biopsied. Recommendation: - Discharge patient to home. - Resume previous diet. - Repeat colonoscopy in 5 years for surveillance based on pathology results. - Continue present medications. Procedure Code(s): --- Professional --- 13147, Colonoscopy, flexible; with biopsy, single or multiple CPT copyright 2021 [employer]. All rights reserved. The codes documented in this report are preliminary and upon panel maker review may be revised to meet current compliance requirements. Ananda Mullen DO 08/21/2024 3:24:25 PM This report has been signed electronically. Number of Addenda: 0 Note Initiated On: 08/21/2024 2:53 PM
--- NOTE | 2024-08-21 15:24 | OP.CCLET_ITS ---
08/21/2024 Riley Holly [address] [place] [address] Re : Colonoscopy procedure for Ana Guthrie Dear Dr. Holly This procedure was performed on Wednesday, August 21, 2024. My impressions and recommendations are as follows: Impressions : - Congested mucosa in the entire examined colon. Biopsied. - Congested mucosa in the terminal ileum. Biopsied. Recommendations : - Discharge patient to home. - Resume previous diet. - Repeat colonoscopy in 5 years for surveillance based on pathology results. - Continue present medications. My findings are described in the full procedure note, which is enclosed. If I can be of further assistance, please feel free to contact me at . Sincerely, Ananda Mullen, 08/21/2024 3:24:25 PM This report has been signed electronically.
--- NOTE | 2024-08-21 18:42 | PCM.POSTANE2 ---
Anesthesia Postop Eval I Sum Postop Eval Completion status Anesthesia document: Postop Eval 1 completed: Yes Anesthesia Postop Eval I Summary Anesthesia Postop Eval I Summary: Anesthesia Postop Eval I: Assessment Summary Airway patent Yes 08/21/24 15:20 [email or web address] Spontaneous unlabored Yes 08/21/24 15:20 [email or web address] respirations Mental status Awake,Calm 08/21/24 15:20 [email or web address] nausea No 08/21/24 15:20 [email or web address] Vomiting No 08/21/24 15:20 [email or web address] Anesthesia Postop Eval I: Fluid Summary Crystalloid volume administer 700 08/21/24 15:20 [email or web address] (ml) Colloids volume administered ( ml) Blood Product volume administered (ml) Total IV fluid infused 700 08/21/24 15:20 [email or web address] Anesthesia Postop Eval I: Summary Notes Anesthesia Complication No 08/21/24 15:20 [email or web address] Anesthesia Complication Comment: Post-operative progress note Anesthesia: Postop Eval II Evaluation Mental status: Awake Pain Level: 0 nausea: No Vomiting: No Complications Anesthesia Complication: No
== END 2024-08-21 15:54 | disposition home or self-care (01) ==
LOC: EN 13:04 → AC 13:05
PROVIDERS: PCP Family Medicine; Referring Provider Family Medicine; Visit Provider Internal Medicine Gastroenterology
PROC: 0DJD8ZZ Inspection of Lower Intestinal Tract, Via Natural or Artificial Opening Endoscopic (ICD-10-PCS; CPT 45378; principal; 2024-08-21 14:10)
DX: K58.0 Irritable bowel syndrome with diarrhea (principal); B20 Human immunodeficiency virus [HIV] disease; K31.89 Other diseases of stomach and duodenum; K92.89 Other specified diseases of the digestive system; K95.89 Other complications of other bariatric procedure; E03.9 Hypothyroidism, unspecified; Z90.49 Acquired absence of other specified parts of digestive tract; Z98.84 Bariatric surgery status; Z79.620 Long term (current) use of immunosuppressive biologic; Z79.890 Hormone replacement therapy; Z79.899 Other long term (current) drug therapy
CPT/HCPCS: 43245; 43239; 45380; 88305; C1769; J2405

== ENCOUNTER → 2025-03-05 | Outpatient (CLI) | payer MEDICARE, SELFPAY ==
--- NOTE | 2025-03-05 14:03 | VDLE_ITS ---
Reason For Study Reason For Study: BLE Swelling RIGHT LEFT CFV is compressible, spontaneous, phasic, competent CFV is compressible, spontaneous, phasic, competent, and demonstrates normal augmentation. and demonstrates normal augmentation. FV is compressible, spontaneous, phasic, competent FV is compressible, spontaneous, phasic, competent and demonstrates normal augmentation. and demonstrates normal augmentation. POP V is compressible, spontaneous, phasic, competent POP V is compressible, spontaneous, phasic, competent and demonstrates normal augmentation. and demonstrates normal augmentation. T/P Trunk is compressible. T/P Trunk is compressible. PTV is compressible. PTV is compressible. RT PerV is compressible. LT PerV is compressible. SFJ is competent and measures 0.74 cm. SFJ is INCOMPETENT and measures 0.76 cm. GSV proximal thigh measures 0.28 x 0.31 cm. GSV proximal thigh measures 0.54 x 0.65 cm. Unable to visualize GSV mid thigh to ankle. Pt states GSV above knee is INCOMPETENT for greater than 0.5 she has a history of EVLA procedure. seconds. SSV at junction is competent and measures 0.33 x 0.30 GSV below knee is competent. cm. Pt states HX of EVLA procedure of LLE. Unable to SSV mid calf is competent and measures 0.21 x 0.25 visualize distal calf GSV. cm. SSV at junction is competent and measures 0.29 x0.30 Procedure cm. Exam performed in department. SSV mid calf is competent and measures 0.34 x 0.33 This is a venous duplex using B-mode, color flow and cm. spectral Doppler. ASV mid calf is INCOMPETENT for greater than 0.5 The exam was diagnostic. seconds and measures 0.28 cm. Patient was scanned in reverse Trendelenburg position during reflux assessment. VL/Venous Duplex US - Otis Extrem Interpretation Summary Deep veins of the bilateral lower extremities are patent and compressible segme ntally. There is no evidence of bilateral lower extremity deep vein thrombosis. The left great saphenous vein appears pat ent and compressible segmentally. Positive for reflux in the left saphenofemoral junction, great saphenous vein a kristi the knee, accessory saphenous vein in calf. Ordering Physician: Reena Hogan Referring Physician: MD Elayne Riley Performed By: Aaron Salvador RVT
== END | disposition home or self-care (01) ==
LOC: CVS 14:00
PROVIDERS: PCP Family Medicine; Referring Provider Physician Assistant; Visit Provider Physician Assistant
DX: I87.2 Venous insufficiency (chronic) (peripheral) (principal); R60.0 Localized edema
CPT/HCPCS: 93970